=== PATIENT | female | born 1985 | race Two or more races ===

== ENCOUNTER 2018-01-10 14:51 | Emergency (ER) | payer MEDICAID ==
--- NOTE | 2018-01-10 16:28 | ED Physician Documentation ---
PD HPI FEMALE - Stated complaint Stated Complaint: FEMALE /5-6 WEEKS PREG - Chief complaint Chief Complaint: General - History obtained from History obtained from: Patient, Family - History of Present Illness Timing - onset: Last night Timing - duration: Hours Timing - details: Abrupt onset, Still present Associated symptoms: Pelvic pain, Vaginal bleeding. 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 She has had irregular periods and is uncertain of her dates exactly. She has not had an ultrasound with this she has not been in yet to see her doctor about this . She has developed some bleeding and cramping that started last nightShe had one episode of bleeding last night and she has developed a second episode this morning with some champagne discharge on the paper and a tinge of red to the commode Review of Systems Constitutional: denies: Fever Eyes: denies: Decreased vision Ears: denies: Ear pain Nose: denies: Congestion Cardiac: denies: Chest pain / pressure Respiratory: denies: Dyspnea, Cough GI: denies: Abdominal Pain, Nausea, Vomiting : denies: Dysuria, Frequency Skin: denies: Rash Musculoskeletal: denies: Neck pain, Back pain, Extremity pain Neurologic: denies: Generalized weakness, Focal weakness, Numbness PD PAST MEDICAL HISTORY - Past Surgical History Past Surgical History: No - Present Medications Home Medications: Ambulatory Orders Medication Instructions Recorded Confirmed Pnv No.121/Iron/Folic Acid 01/10/18 [ Multivitamin Tablet] - Allergies Allergies/Adverse Reactions: Allergies Allergy/AdvReac Type Severity Reaction Status Date / Time No Known Drug Allergies Allergy Verified 01/10/18 15:03 - Social History Does the pt smoke?: Yes Smoking Status: Former smoker Does the pt drink ETOH?: No Does the pt have substance abuse?: No - Immunizations Immunizations are current?: Yes PD ED PE NORMAL - Vitals Vital signs reviewed: Yes (normal) - General General: Alert and oriented X 3, No acute distress, Well developed/nourished - HEENT HEENT: Atraumatic, PERRL, EOMI - Respiratory Respiratory: No respiratory distress - Abdomen Abdomen: Soft, Non tender - Back Back: No CVA TTP, No spinal TTP - Derm Derm: Normal color, Warm and dry, No rash - Extremities Extremities: No deformity, No edema - Neuro Neuro: Alert and oriented X 3, No motor deficit, No sensory deficit, Normal speech Eye Opening: Spontaneous Motor: Obeys Commands Verbal: Oriented GCS Score: 15 - Psych Psych: Normal mood, Normal affect Results - Vitals Vitals: Vital Signs - 24 hr 01/10/18 01/10/18 01/10/18 14:59 16:01 17:02 Temperature 36.9 C Heart Rate 64 59 L 66 Respiratory 16 16 16 Rate Blood Pressure 123/83 H 116/74 114/79 O2 Saturation 100 100 100 01/10/18 18:13 Temperature Heart Rate 60 Respiratory 16 Rate Blood Pressure 122/80 O2 Saturation 100 Oxygen O2 Source Room air - Labs Labs: Laboratory Tests 01/10/18 01/10/18 16:12 16:55 HCG, Quant 15.76 Urine Color YELLOW Urine Clarity CLEAR Urine pH 7.0 Ur Specific [place] <=1.005 Urine Protein NEGATIVE Urine Glucose (UA) NEGATIVE Urine Ketones NEGATIVE Urine Occult Blood MODERATE H Urine Nitrite NEGATIVE Urine Bilirubin NEGATIVE Urine Urobilinogen 0.2 (NORMAL) Ur Leukocyte Esterase NEGATIVE Urine RBC 0-5 Urine WBC 0-3 Ur Squamous Epith Cells MOD Squamous H Urine Bacteria Few Ur Microscopic Review INDICATED Urine Culture Comments NOT INDICATED - Rads (name of study) TV ultrasound Radiology: Prelim report reviewed (Impression: 1. Single intrauterine fluid collection, possibly early gestational sac at a staged estimate of gestational age 5 weeks 3 days with SEDA 09/09/2018 based on mean sac diameter, which is concordant with clinical dates. 2. No abnormalities identified to explain bleeding.), EMP read indepedently, See rad report Procedures - Bedside sono Bedside sono by EMP: With bedside ultrasound the uterus is imaged and there does appear to be a gestational sac sized to date 5 weeks 3 days. PD MEDICAL DECISION MAKING - ED course Complexity details: reviewed results, re-evaluated patient, considered differential, d/w patient, d/w family ED course: 32-year-old female is very early has a low hCG quant and imaging both at the bedside and formally with transvaginal shows a 5 week 3 day gestational sac. Departure - Departure Disposition: Home, Self Care Clinical Impression: Threatened Instructions: ED Miscarriage Poss Follow-Up: [facility] [Provider Group] Comments: Continue your pre-maynor vitamin and follow up with [facility] this [facility]. Discharge Date/Time: 01/10/18 18:22
[2018-01-10 17:04] LABS: BILIRUBIN,URINE NEGATIVE (NEGATIVE); GLUCOSE, URINE (UA) NEGATIVE (NEGATIVE); KETONES,URINE (UA) NEGATIVE (NEGATIVE); LEUKOCYTE ESTERASE, URINE NEGATIVE (NEGATIVE); NITRITE,URINE NEGATIVE (NEGATIVE); OCCULT BLOOD,URINE MODERATE (NEGATIVE); PROTEIN,URINE NEGATIVE (NEGATIVE); UROBILINOGEN,URINE 0.2 (NORMAL) E.U./dL (NORMAL)
[2018-01-10 17:05] LABS: CLARITY,URINE CLEAR (CLEAR)
[2018-01-10 17:21] LABS: BACTERIA,URINE Few /HPF (None Seen); RBC,URINE 0-5 /HPF (0-5); SQUAMOUS EPITHELIAL CELL,UR MOD Squamous (<= Few)
--- NOTE | 2018-01-10 18:12 | Ultrasound Preliminary Report ---
Exam: US OB FIRST TRIMESTER IMPRESSION: 1. Single intrauterine fluid collection, possibly early gestational sac at EGA 5 weeks 3 days with ED D 09/09/2018 based on mean sac diameter, which is concordant with clinical dates. 2. No abnormalities identified to explain bleeding. [facility] SITE ID: [id number]
--- NOTE | 2018-01-10 18:13 | Ultrasound Report ---
REVISED: REPORT ORIGINALLY SIGNED ON 01/10/2018@1813; ORDERS LINKED ON 2017 jll EXAM: FIRST TRIMESTER OBSTETRIC ULTRASOUND (Less than 11 weeks) EXAM DATE: 01/10/2018 05:48 PM. CLINICAL HISTORY: Bleeding. Early . LMP: 12/05/2017. COMPARISONS: None. TECHNIQUE: Transabdominal and transvaginal ultrasound examination with static image documentation. CLINICAL DATES: EGA 5 weeks 1 day with SEDA 09/11/2018 based on LMP. ASSESSMENT: Gestational Sac: Single intrauterine fluid collection, possibly gestational sac. Mean sac diameter: 7.1 mm = 5 weeks 3 days. Embryo: CRL (crown-rump length) nonvisualized. Cardiac activity: Nonvisualized. Yolk sac: Nonvisualized. Amniotic fluid: Not accurately assessed at this gestational age. Early placenta: Not visible at this gestational age. Other: No perigestational fluid collection demonstrated. MATERNAL STRUCTURES: Uterus: Retroverted. Unremarkable. Cervix: Closed. Right Ovary/Adnexa: Unremarkable. The ovary measures 4.9 x 2.1 x 2.9 cm, volume 15.6 cc. Corpus luteum measures 1.6 x 1.4 x 1.3 cm. Left Ovary/Adnexa: Unremarkable. The ovary measures 3.9 x 1.9 x 2.2 cm, volume 8.5 cc. Free Fluid: None. Other: None. IMPRESSION: 1. Single intrauterine fluid collection, possibly early gestational sac at EGA 5 weeks 3 days with SEDA 09/09/2018 based on mean sac diameter, which is concordant with clinical dates. 2. No abnormalities identified to explain bleeding. [facility] Referring Provider Line: [phone] SITE ID: [id number]
[2018-01-10 18:15] VITALS: BP 122/80
== END 2018-01-10 18:22 | disposition home or self-care (01) ==
LOC: ED 14:51
DX: O20.0 Threatened abortion (principal); Z3A.01 Less than 8 weeks gestation of pregnancy; Z87.891 Personal history of nicotine dependence
CPT/HCPCS: 36415; 76801; 76817; 81001; 81003; 84702; 87086; 99283

== ENCOUNTER 2018-02-28 08:00 | Outpatient (CLI) | payer MEDICAID ==
[2018-02-28 20:13] LABS: FOLLICLE STIMULATING HORMONE 6.27 mIU/mL
[2018-02-28 20:15] LABS: LUTEINIZING HORMONE 14.56 mIU/mL
== END 2018-02-28 08:01 | disposition home or self-care (01) ==
LOC: LAB.N 08:00
PROVIDERS: ATTEND Obstetrics & Gynecology
DX: E28.2 Polycystic ovarian syndrome (principal)
CPT/HCPCS: 36415; 83001; 83002

== ENCOUNTER 2018-05-29 11:18 | Outpatient (CLI) | payer MEDICAID ==
[2018-05-29 19:04] LABS: HB2 TOTAL 14.5 g/dL; HEMOGLOBIN A1C 0.5 g/dL; HEMOGLOBIN A1C % 5.3 % (4.6-6.2)
== END 2018-05-29 11:19 | disposition home or self-care (01) ==
LOC: LAB.S 11:18
PROVIDERS: ATTEND Obstetrics & Gynecology
DX: E28.2 Polycystic ovarian syndrome (principal)
CPT/HCPCS: 36415; 83001; 83036; 84144

== ENCOUNTER 2018-08-07 10:24 | Outpatient (CLI) | payer MEDICAID | END 2018-08-07 10:25 | disposition home or self-care (01) | LOC: LAB.R 10:24 | PROVIDERS: ATTEND Registered Nurse | DX: N76.0 Acute vaginitis (principal); E28.2 Polycystic ovarian syndrome | CPT/HCPCS: 87491; 87591 ==

== ENCOUNTER 2018-08-08 14:46 | Outpatient (CLI) | payer MEDICAID ==
[2018-08-09 09:36] LABS: PROGESTERONE 27.5 ng/mL
[2018-08-10 12:07] LABS: DHEA SULFATE 231 mcg/dL (23-266)
[2018-08-10 15:22] LABS: HSV 2 IGG TYPE SPECIFIC AB <0.90 index
== END 2018-08-08 14:47 | disposition home or self-care (01) ==
LOC: LAB 14:46
PROVIDERS: ATTEND Registered Nurse
DX: N76.0 Acute vaginitis (principal); E28.2 Polycystic ovarian syndrome; Z11.3 Encounter for screening for infections with a predominantly sexual mode of transmission
CPT/HCPCS: 36415; 81599; 82627; 84144; 84402; 84403; 84443; 86695; 86696; 88230; 88262

== ENCOUNTER 2018-09-03 13:00 | Outpatient (CLI) | payer MEDICAID ==
--- NOTE | 2018-09-03 22:22 | Ultrasound Report ---
Reason: ENCTR FOR TEST,RESULT POSITIVE Procedure Date: 09/03/2018 Accession Number: [id number] / [id number] Procedure: US - OB First Trimester CPT Code: FULL RESULT: EXAM: FIRST TRIMESTER OBSTETRIC ULTRASOUND (LESS THAN 11 WEEKS). EXAM DATE: 09/03/2018 01:57 PM. CLINICAL HISTORY: ENCTR for test, result positive. LMP: 07/19/2018, 6 weeks 4 days. COMPARISONS: OB first trimester 01/10/2018 5:11 PM. TECHNIQUE: Transabdominal and transvaginal ultrasound examination with static image documentation. FINDINGS: Gestational Sac: An intrauterine fluid-filled sac contains both an embryo and yolk sac. Embryo: CRL (crown-rump length) measures 7.1 mm corresponding to an estimated gestational age of 6 weeks 4 days. Heart Rate: 124 beats per minute. Placenta: Not visible at this gestational age. Amniotic fluid: Not accurately assessed at this gestational age. Uterus: Unremarkable retroverted appearance. Cervix: Closed. Right Ovary: Volume 127.5 cc. Enlarged, containing multiple cysts measuring up to 37 x 31 x 31 mm, hemorrhagic. Normal blood flow. Left Ovary: Volume 11.9 cc. Normal echotexture and blood flow. Free Fluid: None. Other: None. IMPRESSION: 1. Single live intrauterine at 6 weeks 4 days by LMP, today's exam is concordant -- for an estimated delivery date of 04/25/2019. 2. Enlarged 175 cc right ovary containing cysts, including a 3.5 cm hemorrhagic cyst. This should be followed up with a subsequent obstetric ultrasounds. [facility]
== END 2018-09-03 13:01 | disposition home or self-care (01) ==
LOC: DI 13:00
PROVIDERS: ATTEND Nurse Practitioner Obstetrics & Gynecology
DX: Z32.01 Encounter for pregnancy test, result positive (principal); O34.81 Maternal care for other abnormalities of pelvic organs, first trimester; N83.201 Unspecified ovarian cyst, right side; Z3A.01 Less than 8 weeks gestation of pregnancy
CPT/HCPCS: 76801; 76817

== ENCOUNTER 2018-09-26 09:42 | Outpatient (CLI) | payer MEDICAID ==
[2018-09-26 16:54] LABS: MUDS CUTOFF CONCENTRATIONS CUTOFF CONC BELOW:
[2018-09-26 17:11] LABS: AMPHETAMINE SCREEN,URINE NEGATIVE (NEGATIVE); BENZODIAZEPINES SCREEN, URINE NEGATIVE (NEGATIVE); COCAINE SCREEN URINE NEGATIVE (NEGATIVE); METHADONE SCREEN, URINE NEGATIVE (NEGATIVE); METHAMPHETAMINES SCREEN, URINE NEGATIVE (NEGATIVE); OPIATE SCREEN, URINE NEGATIVE (NEGATIVE); OXYCODONE SCREEN, URINE NEGATIVE (NEGATIVE); PROPOXYPHENE SCREEN, URINE NEGATIVE (NEGATIVE); TRICYCLIC ANTIDEPRESSANT,URINE NEGATIVE (NEGATIVE)
== END 2018-09-26 09:43 | disposition home or self-care (01) ==
LOC: LAB.R 09:42
PROVIDERS: ATTEND Registered Nurse
DX: Z36.9 Encounter for antenatal screening, unspecified (principal)
CPT/HCPCS: 80306

== ENCOUNTER 2018-09-29 11:21 | Outpatient (CLI) | payer MEDICAID | END 2018-09-29 11:22 | disposition home or self-care (01) | LOC: LAB.F 11:21 | PROVIDERS: ATTEND Registered Nurse | DX: Z36.9 Encounter for antenatal screening, unspecified (principal) ==

== ENCOUNTER 2018-10-17 14:22 | Outpatient (CLI) | payer MEDICAID ==
[2018-10-17 15:14] LABS: BASOPHILS % (AUTO) 0.2 %; EOSINOPHILS # (AUTO) 0.2 10^3/uL (0.0-0.7); HGB - HEMOGLOBIN 12.5 g/dL (12.0-16.0); LYMPHOCYTES # (AUTO) 1.9 10^3/uL (1.5-3.5); LYMPHOCYTES % (AUTO) 21.9 %; MEAN CORPUSCULAR HEMOGLOBIN 34.5 pg (27.0-31.0); MEAN CORPUSCULAR HGB CONC 35.2 g/dL (32.0-36.0); MEAN CORPUSCULAR VOLUME 97.9 fL (81.0-99.0); MEAN PLATELET VOLUME 7.3 fL (7.9-10.8); MONOCYTES # (AUTO) 0.5 10^3/uL (0.0-1.0); MONOCYTES % (AUTO) 6.3 %; NEUTROPHILS # (AUTO) 6.1 10^3/uL (1.5-6.6); NEUTROPHILS % (AUTO) 69.6 %; PLT - PLATELET COUNT 279 10^3/uL (130-450); RED BLOOD COUNT 3.64 10^6/uL (4.20-5.40); RED CELL DISTRIBUTION WIDTH 12.3 % (12.0-15.0); WHITE BLOOD COUNT 8.7 x10^3/uL (4.8-10.8)
[2018-10-17 15:28] LABS: HEMOGLOBIN A1C 0.51 g/dL; HEMOGLOBIN A1C % 5.7 % (4.6-6.2)
[2018-10-18 12:47] LABS: HEPATITIS B SURFACE ANTIGEN NON-REACTIVE (NON-REACTIVE)
[2018-10-18 12:49] LABS: HEPATITIS C ANTIBODY NON-REACTIVE (NON-REACTIVE)
[2018-10-18 13:27] LABS: HIV AG/AB 4TH GEN NON-REACTIVE (NON-REACTIVE)
== END 2018-10-17 14:23 | disposition home or self-care (01) ==
LOC: LAB 14:22
PROVIDERS: ATTEND Registered Nurse
DX: Z36.9 Encounter for antenatal screening, unspecified (principal)
CPT/HCPCS: 36415; 81001; 81599; 82950; 83036; 85025; 86592; 86762; 86803; 86850; 86900; 86901; 87340; 87389

== ENCOUNTER 2018-10-24 08:00 | Outpatient (CLI) | payer MEDICAID | END 2018-10-24 23:59 | disposition home or self-care (01) | LOC: LAB.R 08:00 | PROVIDERS: ATTEND Nurse Practitioner Obstetrics & Gynecology | DX: N76.0 Acute vaginitis (principal) | CPT/HCPCS: 87480; 87510; 87660 ==

== ENCOUNTER 2018-10-26 14:38 | Outpatient (CLI) | payer MEDICAID ==
[2018-10-26 15:55] LABS: BILIRUBIN,URINE NEGATIVE (NEGATIVE); GLUCOSE, URINE (UA) 100 mg/dL (NEGATIVE); KETONES,URINE (UA) NEGATIVE (NEGATIVE); LEUKOCYTE ESTERASE, URINE TRACE (NEGATIVE); NITRITE,URINE NEGATIVE (NEGATIVE); OCCULT BLOOD,URINE NEGATIVE (NEGATIVE); PROTEIN,URINE NEGATIVE (NEGATIVE); UROBILINOGEN,URINE 0.2 (NORMAL) E.U./dL (NORMAL)
[2018-10-26 16:07] LABS: BACTERIA,URINE None Seen /HPF (None Seen); CLARITY,URINE CLEAR (CLEAR); RBC,URINE None Seen /HPF (0-5); SQUAMOUS EPITHELIAL CELL,UR RARE Squamous (<= Few)
== END 2018-10-26 14:39 | disposition home or self-care (01) ==
LOC: LAB 14:38
PROVIDERS: ATTEND Registered Nurse
DX: Z36.9 Encounter for antenatal screening, unspecified (principal)
CPT/HCPCS: 36415; 81001; 82950; 87086

== ENCOUNTER 2024-01-30 08:47 | Outpatient (CLI) | payer BC, MEDICAID ==
--- NOTE | 2024-01-31 09:01 | Mammography Report ---
BILATERAL FIRST EVER DIGITAL SCREENING MAMMOGRAM 3D/2D WITH EXAGGERATED CC: 01/30/2024 CLINICAL: Baseline exam. Routine screening. Family history of breast cancer. No prior exams were available for comparison. Both breasts are heterogeneously dense, which may obscure small masses (category c / 51-75% glandular tissue). There is a focal asymmetry in the left breast at 12 o'clock anterior depth. No other significant masses, calcifications, or other findings are seen in either breast. IMPRESSION: INCOMPLETE: NEEDS ADDITIONAL IMAGING EVALUATION The focal asymmetry in the left breast is indeterminate. Additional views with possible ultrasound a re recommended. Based on Tyrer-Cuzick model (a risk assessment model), the patient's lifetime risk is 30.3% and her 1 0 year risk is 4.3%. If a patient has an elevated risk, a more comprehensive evaluation should be con sidered and/or a referral to a genetic counselor. The [place] [employer], [employer], and NCCN Guidelines advise the consideration of Breast MRI as an adjunct to screening mammog miley in patients whose "Lifetime risk to develop breast cancer" is 20% or higher. This exam was interpreted at Station ID: [id number]. NOTE: For mammograms, a report in lay terms will be sent to the patient. Approximately 15% of breast malignancies will not be visualized mammographically. In the management of a palpable breast mass, a negative mammogram must not discourage biopsy of a clinically suspicious lesion. Electronically Signed By: Rosalee Santiago M.D. lk/:01/30/2024 11:33:43 ACR BI-RADS Category 0: Incomplete 3340F PARENCHYMAL PATTERN: (D) - The breast(s) demonstrate(s) heterogeneously dense fibroglandular parenchy mariely. BI-RADS CATEGORY: (0) - 0 Mammo and [place] [id number] Immediate follow-up LATERALITY: (B)
== END 2024-01-30 08:48 | disposition home or self-care (01) ==
LOC: DI.S 08:47
PROVIDERS: ATTEND Naturopath
DX: Z12.31 Encounter for screening mammogram for malignant neoplasm of breast (principal); R92.333 Mammographic heterogeneous density, bilateral breasts; R92.8 Other abnormal and inconclusive findings on diagnostic imaging of breast

== ENCOUNTER 2024-04-04 09:40 | Outpatient (CLI) | payer BC ==
--- NOTE | 2024-04-05 09:48 | Mammography Report ---
UNILATERAL LEFT DIGITAL DIAGNOSTIC MAMMOGRAM 3D/2D: 04/04/2024 CLINICAL: Patient returns today to evaluate a focal asymmetry in the left breast. Comparison is made to exam dated: 01/30/2024 mammogram - [facility]. The left breast is heterogeneously dense, which may obscure small masses (category c / 51-75% glandul ar tissue). The focal asymmetry seen on recent screening mammogram did not persist with additional imaging and li ayad represents superimposition of normal breast tissue. No significant masses, calcifications, or other findings are seen in the breast. IMPRESSION: INCOMPLETE: NEEDS ADDITIONAL IMAGING EVALUATION Probable superimposition of normal breast tissue. Recommend further evaluation with targeted breast u ltrasound, which will immediately follow this exam. Given patient history of elevated lifetime breast cancer risk of approximately 31%, recommend consid eration for annual screening breast MRI as an adjunct to screening mammography. This is to be offset by approximately 6 months from patient's mammograms. Based on Tyrer-Cuzick model (a risk assessment model), the patient's lifetime risk is 31.0% and her 1 0 year risk is 4.5%. If a patient has an elevated risk, a more comprehensive evaluation should be con sidered and/or a referral to a genetic counselor. The [place] [employer], [employer], and NCCN Guidelines advise the consideration of Breast MRI as an adjunct to screening mammog miley in patients whose "Lifetime risk to develop breast cancer" is 20% or higher. This exam was interpreted at Station ID: [id number]. NOTE: For mammograms, a report in lay terms will be sent to the patient. Approximately 15% of breast malignancies will not be visualized mammographically. In the management of a palpable breast mass, a negative mammogram must not discourage biopsy of a clinically suspicious lesion. Electronically Signed By: Lisa Hill M.D., Ph.D. eb/:04/04/2024 10:36:58 ACR BI-RADS Category 0: Incomplete 3340F PARENCHYMAL PATTERN: (D) - The breast(s) demonstrate(s) heterogeneously dense fibroglandular parenchy ma. BI-RADS CATEGORY: (0) - 0 Ultrasound [id number] Immediate follow-up LATERALITY: (B)
--- NOTE | 2024-04-05 09:49 | Ultrasound Report ---
LIMITED ULTRASOUND OF LEFT BREAST: 04/04/2024 CLINICAL: Patient returns today to evaluate a focal asymmetry in the left breast. Comparison is made to exams dated: 01/30/2024 mammogram and 04/04/2024 mammogram - [facility]. Color flow ultrasound of the left breast 12 o'clock, and retroareolar regions was performed. Rice s vida images of the real-time examination were reviewed. Confirmatory ultrasound demonstrates no sonographic abnormality at 12 o'clock in the retroareolar reg ion. IMPRESSION: NEGATIVE Superimposition of normal breast tissue with confirmatory negative ultrasound. No sonographic or mamm ographic evidence of malignancy. A 1 year screening mammogram is recommended. Given patient history of elevated lifetime breast cancer risk of approximately 31%, recommend consid eration for annual high risk screening breast MRI as an adjunct to screening mammography. This is to be offset by approximately 6 months from patient's mammograms. Findings and recommendations were conveyed to the patient during today's evaluation. This exam was interpreted at Station ID: [id number]. Electronically Signed By: Lisa Hill M.D., Ph.D. eb/:04/04/2024 10:39:04 letter sent: No_Letter Ultrasound BI-RADS: 1 Negative BI-RADS CATEGORY: (1) - 1 RECOMMENDATION: (ANNUAL) - Recommend routine annual screening mammography. [id number] 1 year screening LATERALITY: (B)
== END 2024-04-04 09:41 | disposition home or self-care (01) ==
LOC: DI 09:40
PROVIDERS: ATTEND Naturopath
DX: R92.2 Inconclusive mammogram (principal); R92.332 Mammographic heterogeneous density, left breast; Z15.01 Genetic susceptibility to malignant neoplasm of breast